=== PATIENT | female | born 1965 | race Caucasian/White ===

== ENCOUNTER 2017-04-20 22:40 | Emergency (ER) | payer SELFPAY ==
[2017-04-21] MEDS ORDERED: ONDANSETRON 4 MG TAB.RAPDIS PO ONE (01:04)
[2017-04-21] MEDS ORDERED: OXYCODONE-ACETAMINOPHEN 5-325 MG TABLET PO ONE (01:04)
--- NOTE | 2017-04-21 01:08 | ER Document Report ---
ED General - General Chief Complaint: Shoulder Pain Stated Complaint: SHOULDER PAIN Time Seen by Provider: 04/21/17 00:47 Notes: Patient is a 52-year-old female comes emergency department for chief complaint of left shoulder pain, she also reports an episode of vomiting and syncope. She states for the past 2 months her shoulder has had progressive worsening constant pain, she states she has had surgery on the shoulder in 2007, she states that previous to her surgery she actually had similar symptoms where she would get in so bad of pain that she would pass out. Patient reports sharp pain across the left shoulder towards the back currently. She denies dizziness , shortness of breath, current nausea. She smokes, denies alcohol use, denies recreational drugs, denies any other past medical history other than left shoulder surgery. TRAVEL OUTSIDE OF THE [place] IN LAST 30 DAYS: No Past Medical History - General Information source: Patient - Social History Smoking Status: Former Smoker Frequency of alcohol use: None Drug Abuse: None Lives with: Family Family History: Reviewed & Not Pertinent Patient has suicidal ideation: No Patient has homicidal ideation: No Renal/ Medical History: Denies: Hx Peritoneal Dialysis Musculoskeltal Medical History: Reports Hx Arthritis Past Surgical History: Reports: Hx Orthopedic Surgery Review of Systems - Review of Systems Constitutional: No symptoms reported EENT: No symptoms reported Cardiovascular: See HPI Respiratory: No symptoms reported Gastrointestinal: No symptoms reported Genitourinary: No symptoms reported Female Genitourinary: No symptoms reported Musculoskeletal: See HPI Skin: No symptoms reported Hematologic/Lymphatic: No symptoms reported Neurological/Psychological: See HPI Physical Exam - Vital signs Vitals: Temp Pulse Resp BP Pulse Ox 98.2 F 89 17 116/70 97 04/20/17 22:48 04/20/17 22:48 04/20/17 22:48 04/20/17 22:48 04/20/17 22:48 Interpretation: Normal - General General appearance: Alert, Anxious In distress: Mild - HEENT Head: Normocephalic, Atraumatic Eyes: Normal Pupils: PERRL - Respiratory Respiratory status: No respiratory distress Chest status: Nontender Breath sounds: Normal Chest palpation: Normal - Cardiovascular Rhythm: Regular. No: Tachycardia Heart sounds: Normal auscultation, S1 appreciated, S2 appreciated Murmur: No - Abdominal Inspection: Normal Distension: No distension Bowel sounds: Normal Tenderness: Nontender Organomegaly: No organomegaly - Back Back: Normal, Nontender - Extremities General upper extremity: Other - Tenderness generally over the left shoulder including the proximal humerus, supraspinatus, trapezius, and slightly over the AC joint. Pain with range of motion of the shoulder, normal grasp, normal distal neurovascular exam. General lower extremity: Normal inspection, Nontender, Normal color, Normal ROM , Normal temperature, Normal weight bearing. No: Jose L's sign - Neurological Neuro grossly intact: Yes Cognition: Normal Orientation: AAOx4 Emerald Coma Scale Eye Opening: Spontaneous [place] Coma Scale Verbal: Oriented [place] Coma Scale Motor: Obeys Commands Emerald Coma Scale Total: 15 Speech: Normal Motor strength normal: LUE, RUE, LLE, RLE Sensory: Normal - Psychological Associated symptoms: Normal affect, Normal mood - Skin Skin Temperature: Warm Skin Moisture: Dry Skin Color: Normal Course - Re-evaluation Re-evalutation: Patient is in obvious discomfort on my initial evaluation, she is holding her arm supporting her elbow to lift her shoulder above the normal resting location. She has a lot of pain when trying to perform range of motion of the shoulder, pain appears to be over the proximal humerus and extending up over the rotator cuff. Normal strength, normal neurovascular exam. Because of syncopal episode with reported symptoms full workup was performed. EKG shows no ST segment changes or T-wave inversions in consecutive leads, shows sinus rhythm, chest x-ray unremarkable, CBC, CMP, 2 sets of cardiac enzymes are unremarkable. Patient is asking to leave. She is also asking for a sling for more support and more comfort. She is much more comfortable after pain medication. She is able to use her arm almost normally. She states that when she had surgery they found that she had large spurring and had are more shredded a muscle, states her recovery took a year. Patient most likely will need MRI and orthopedic follow-up for potentially surgery again. I did agree to provide with pain medication and anti-inflammatory medication, discussed follow-up instructions in detail, discussed return precautions, patient states understanding and agreement. - Vital Signs Vital signs: Temp Pulse Resp BP Pulse Ox 98.5 F 88 18 135/78 H 98 04/21/17 04:48 04/21/17 04:48 04/21/17 04:48 04/21/17 04:48 04/21/17 04:48 - Laboratory Result Diagrams: 04/21/17 01:16 04/21/17 01:16 Laboratory results interpreted by me: 04/21/17 04/21/17 01:16 01:16 RDW 14.2 H Sodium 146.2 H Chloride 109 H Discharge - Discharge Clinical Impression: Left shoulder pain Qualifiers: Chronicity: acute Qualified Code(s): M25.512 - Pain in left shoulder Episode of syncope Qualifiers: Syncope type: unspecified Qualified Code(s): R55 - Syncope and collapse Condition: Stable Disposition: HOME, SELF-CARE Additional Instructions: Your workup here does not show any concerning abnormalities. Please follow-up closely with orthopedics for additional management of your ongoing worsening symptoms with your left shoulder. Take the pain medication if needed, take the anti-inflammatory as prescribed, use the sling if needed for comfort, remember to take arm out of sling and perform full range of motion regularly to avoid stiffening of the joint. Return to the emergency department for any concerning or worsening symptoms including fever, passing out again, chest pain, shortness of breath, etc. Prescriptions: Morphine Sulfate [Morphine Ir 15 Mg Tablet] 15 mg PO Q4HP PRN #12 tablet PRN Reason: Naproxen 500 mg PO BID #20 tablet Referrals: TITO SAVAGE MD [ACTIVE STAFF] - 04/22/17
--- NOTE | 2017-04-21 01:30 | RADIOLOGY REPORT (SQ) ---
EXAM DESCRIPTION: CHEST SINGLE VIEW CLINICAL HISTORY: left shoulder pain, vomited, syncope COMPARISON: None. FINDINGS: Single frontal view of the chest. The cardiomediastinal silhouette has normal size and contour. No consolidation, pneumothorax, or pleural effusion. No displaced rib fractures identified. Upper abdominal soft tissues are unremarkable. IMPRESSION: 1. No acute pulmonary process identified.
--- NOTE | 2017-04-21 01:31 | RADIOLOGY REPORT (SQ) ---
EXAM DESCRIPTION: SHOULDER LEFT 2 OR MORE VIEWS CLINICAL HISTORY: sharp left shoulder pain, difficulty lifting COMPARISON: None. FINDINGS: No acute fracture or dislocation. Normal osseous mineralization. No left-sided rib fractures. No left-sided pneumothorax. IMPRESSION: No acute fracture or dislocation.
[2017-04-21 02:00] LABS: ALANINE AMINOTRANSFERASE 21 U/L (9-52); ALBUMIN 3.9 g/dL (3.5-5.0); ALKALINE PHOSPHATASE 100 U/L (38-126); ANION GAP 15 (5-19); ASPARTATE AMINO TRANSFERASE 14 U/L (14-36); BILIRUBIN,DIRECT 0.4 mg/dL (0.0-0.4); BILIRUBIN,TOTAL 0.4 mg/dL (0.2-1.3); BLOOD UREA NITROGEN 15 mg/dL (7-20); CALCIUM 9.3 mg/dL (8.4-10.2); CARBON DIOXIDE 22 mmol/L (22-30); CHLORIDE 109 mmol/L (98-107); CREATINE KINASE 37 U/L (30-135); CREATININE RESULT 0.59 mg/dL (0.52-1.25); GLUCOSE 97 mg/dL (75-110); POTASSIUM 4.3 mmol/L (3.6-5.0); SODIUM 146.2 mmol/L (137-145); TOTAL PROTEIN 7.4 g/dL (6.3-8.2)
[2017-04-21 02:02] LABS: ABSOLUTE BASOPHILS # (AUTO) 0.1 10^3/uL (0.0-0.2); ABSOLUTE EOSINOPHILS # (AUTO) 0.2 10^3/uL (0.0-0.6); ABSOLUTE LYMPHOCYTES (AUTO) 4.4 10^3/uL (0.5-4.7); ABSOLUTE MONOCYTES (AUTO) 0.5 10^3/uL (0.1-1.4); ABSOLUTE NEUT (AUTO) 4.7 10^3/uL (1.7-8.2); BASOPHILS % (AUTO) 1.1 % (0-2); EOSINOPHILS % (AUTO) 2.3 % (0-6); HEMATOCRIT 39.7 % (36.0-47.0); HEMOGLOBIN 13.5 g/dL (12.0-15.5); HGB HCT DIFFERENCE 0.8; LYMPHOCYTES % (AUTO) 44.2 % (13-45); MEAN CORPUSCULAR HEMOGLOBIN 31.2 pg (27.0-33.4); MEAN CORPUSCULAR HGB CONC 34.2 g/dL (32.0-36.0); MEAN CORPUSCULAR VOLUME 91 fl (80-97); MONOCYTES % (AUTO) 5.1 % (3-13); RED BLOOD COUNT 4.35 10^6/uL (3.72-5.28); RED CELL DISTRIBUTION WIDTH 14.2 % (11.5-14.0); SEGMENTED NEUTROPHILS % (AUTO) 47.3 % (42-78); WHITE BLOOD COUNT 9.8 10^3/uL (4.0-10.5)
[2017-04-21 02:16] LABS: CREATINE KINASE MB < 0.22 ng/mL (<4.55); TROPONIN I < 0.012 ng/mL
[2017-04-21 04:49] VITALS: BP 135/78
--- NOTE | 2017-04-21 09:21 | EKG REPORT ---
SEVERITY:- ABNORMAL ECG - SINUS RHYTHM LEFT VENTRICULAR HYPERTROPHY : Confirmed by: Bennett Stephens 21-Apr-2017 09:21:12
== END 2017-04-21 04:45 | disposition home or self-care (01) ==
LOC: ER 22:40
DX: M25.512 Pain in left shoulder (principal); R55 Syncope and collapse; R11.10 Vomiting, unspecified; Z87.891 Personal history of nicotine dependence
CPT/HCPCS: 93005; 99284; 36415; 82553; 82550; 85025; 80053; 84484; 71010; 73030; 93010; S0119

== ENCOUNTER 2017-07-06 16:24 | Emergency (ER) | payer SELFPAY ==
[2017-07-06] MEDS ORDERED: OXYCODONE-ACETAMINOPHEN 5-325 MG TABLET PO ONE (16:43)
--- NOTE | 2017-07-06 17:14 | RADIOLOGY REPORT (SQ) ---
EXAM DESCRIPTION: SHOULDER LEFT 2 OR MORE VIEWS COMPLETED DATE/TIME: 07/06/2017 5:04 pm REASON FOR STUDY: pain/no injury COMPARISON: 04/21/2017 NUMBER OF VIEWS: Four views. TECHNIQUE: Internal rotation, external rotation, Y view, and transcapular images acquired of the lef t shoulder. LIMITATIONS: None. FINDINGS: MINERALIZATION: Normal. BONES: No acute fracture or dislocation. No worrisome bone lesions. JOINTS: No dislocation. VISUALIZED LUNGS AND RIBS: No pneumothorax. No rib fracture. SOFT TISSUES: No radiopaque foreign body. OTHER: No other significant finding. IMPRESSION: NEGATIVE STUDY OF THE LEFT SHOULDER. NO RADIOGRAPHIC EVIDENCE OF ACUTE INJURY. TECHNICAL DOCUMENTATION: JOB ID: [id number] [employer]- All Rights Reserved
--- NOTE | 2017-07-06 17:37 | EKG REPORT ---
SEVERITY:- BORDERLINE ECG - SINUS RHYTHM LVH BY VOLTAGE : Confirmed by: Arie Bucio MD 06-Jul-2017 17:35:52
[2017-07-06] MEDS ORDERED: MORPHINE SULFATE 10 MG/ML INJ IM ONE (18:32)
[2017-07-06] MEDS ORDERED: LIDOCAINE 5% (700 MG) TRANSDERMAL ADH..PATCH TP ONE (18:33)
[2017-07-06 18:58] VITALS: BP 119/73
--- NOTE | 2017-07-06 19:13 | ER Document Report ---
ED General - General Chief Complaint: Shoulder Pain Stated Complaint: SHOULDER PAIN Time Seen by Provider: 07/06/17 16:39 Information source: Patient TRAVEL OUTSIDE OF THE [place] IN LAST 30 DAYS: No - HPI Patient complains to provider of: left shoulder pain Onset: Yesterday Quality of pain: Sharp, Stabbing Associated symptoms: None Exacerbated by: Movement Relieved by: Denies Similar symptoms previously: Yes Recently seen / treated by doctor: Yes - apr 2018 RXed morphine Notes: Signs of left shoulder pain. Patient also complains of left upper back pain. She was to Naprosyn and morphine as well as a follow-up with Dr. Savage the orthopedist. Patient has not followed up. She states no injury since then. Patient only past medical history is left shoulder surgery in 2007. Does smoke a pack a day. Denies any alcohol or illicit drugs. - Related Data Allergies/Adverse Reactions: Penicillins Allergy (Verified 07/06/17 16:25) iv contrast (MRI) Allergy (Uncoded 07/06/17 16:25) Past Medical History - General Information source: Patient, Relative - Social History Smoking Status: Current Every Day Smoker Chew tobacco use (# tins/day): No Frequency of alcohol use: None Drug Abuse: None Family History: Reviewed & Not Pertinent Patient has suicidal ideation: No Patient has homicidal ideation: No - Past Medical History Cardiac Medical History: Reports: None Pulmonary Medical History: Reports: None EENT Medical History: Reports: None Endocrine Medical History: Reports: None Renal/ Medical History: Reports: None. Denies: Hx Peritoneal Dialysis Malignancy Medical History: Reports: None GI Medical History: Reports: None Musculoskeltal Medical History: Reports Hx Arthritis Psychiatric Medical History: Reports: None Traumatic Medical History: Reports: None Past Surgical History: Reports: Hx Orthopedic Surgery - left shoulder Review of Systems - Review of Systems Constitutional: No symptoms reported EENT: No symptoms reported Cardiovascular: No symptoms reported Respiratory: No symptoms reported Gastrointestinal: No symptoms reported Genitourinary: No symptoms reported Female Genitourinary: No symptoms reported Musculoskeletal: Back pain, Joint pain, Muscle pain, Muscle stiffness Skin: No symptoms reported Hematologic/Lymphatic: No symptoms reported Neurological/Psychological: No symptoms reported Physical Exam - Vital signs Vitals: Temp Pulse Resp BP Pulse Ox 98.1 F 91 18 124/79 97 07/06/17 16:29 07/06/17 16:29 07/06/17 16:29 07/06/17 16:29 07/06/17 16:29 - Notes Notes: PHYSICAL EXAMINATION: GENERAL: Well-appearing, well-nourished in mild distress due to back pain. HEAD: Atraumatic, normocephalic. EYES: Pupils equal round and reactive to light, extraocular movements intact, conjunctiva are normal. ENT: Nares patent, oropharynx clear without exudates. Moist mucous membranes. NECK: Normal range of motion, supple without lymphadenopathy. Increased left upper back pain with right rotation of the neck. Pain with palpation of the bony cervical spine. No radiculopathy and no step-off. LUNGS: Breath sounds clear to auscultation bilaterally and equal. No wheezes rales or rhonchi. HEART: Regular rate and rhythm without murmurs ABDOMEN: Soft, nontender, nondistended abdomen. No guarding, no rebound. No masses appreciated. Female : deferred Musculoskeletal: Patient has full range of motion with passive motion testing. She has no pain with palpation of the left shoulder joint. Patient holds her left shoulder elevated up toward her ear because she states that her position of comfort. Patient has severe pain with palpation over her left rhomboid muscle area. The rhomboid muscles going into the trapezial muscles are spasmed and hardened. There is no neurovascular deficits on examination of her upper extremities. She has bilateral hand grasp. No pitting or edema. No cyanosis. NEUROLOGICAL: Cranial nerves grossly intact. Normal speech, normal gait. Normal sensory, motor exams PSYCH: Normal mood, normal affect. SKIN: Warm, Dry, normal turgor, no rashes or lesions noted. Course - Re-evaluation Re-evalutation: 07/06/17 19:19 Patient had mild relief with pain medication. I did talk to her extensively stating that she needed to take anti-inflammatories pain medications and use Biofreeze as instructed for the next few days. If this does not use the pain she is to follow-up with orthopedic as referred. I also told the patient to wear splint and try and keep that left shoulder from tightening as this is creating muscle spasm and making her symptoms worse. - Vital Signs Vital signs: Temp Pulse Resp BP Pulse Ox 98.1 F 80 16 119/73 98 07/06/17 16:29 07/06/17 18:58 07/06/17 18:58 07/06/17 18:58 07/06/17 18:58 - EKG Interpretation by Me EKG shows normal: Sinus rhythm - 83 Rhythm: NSR Discharge - Discharge Clinical Impression: Trapezius muscle spasm Condition: Stable Disposition: HOME, SELF-CARE Instructions: Muscle Relaxers ([facility]), Muscle Strain ([facility]), Anti-Inflammatory Medication ([facility]) Additional Instructions: Follow up with your physician tomorrow for further care or return to the ED IMMEDIATELY if symptoms worsen or new concerns occur. If you cannot afford to follow up with your primary care physician a list of low cost clinics have been provided at the end of your discharge papers as well. Prescriptions: Cyclobenzaprine HCl [Flexeril 10 mg Tablet] 10 mg PO TIDP PRN #15 tab PRN Reason: Naproxen [Naprosyn] 500 mg PO BID 7 Days #14 tablet Oxycodone HCl/Acetaminophen [Percocet 5-325 mg Tablet] 1 tab PO ASDIR PRN #15 tab PRN Reason: Referrals: TITO SAVAGE MD [ACTIVE STAFF] - Follow up as needed
== END 2017-07-06 19:28 | disposition home or self-care (01) ==
LOC: ER 16:24
DX: M25.512 Pain in left shoulder (principal); M54.6 Pain in thoracic spine; F17.210 Nicotine dependence, cigarettes, uncomplicated; Z98.890 Other specified postprocedural states
CPT/HCPCS: 93005; 99284; 96372; 73030; 93010; L3650; J2270